=== PATIENT | female | born 1960 | race Caucasian/White ===

== ENCOUNTER 2020-08-31 08:53 | Outpatient (REF) | payer OTHER, SELFPAY ==
[2020-08-31 12:19] LABS: Thyroid Stimulating Hormone 1.45 uIU/mL (0.32-4.0)
[2020-08-31 12:34] LABS: Alanine Aminotransferase 29 U/L (0-31); Albumin Level 4.4 g/dL (3.5-5.0); Alkaline Phosphatase 85 U/L (39-117); Anion Gap 12 (12-20); Aspartate Amino Transferase 18 U/L (5-31); Bilirubin Total 1.9 mg/dL (0.0-1.0); Blood Urea Nitrogen 15 mg/dL (9-16); Calcium 9.1 mg/dL (8.4-10.2); Carbon Dioxide 31 mmol/L (22-29); Chloride 102 mmol/L (96-108); Estimated Glomerular Filt Rate > 60; Glucose Fasting 91 mg/dL (60-99); Potassium 4.8 mmol/l (3.3-5.1); Sodium 140 mmol/L (135-145); Total Protein 7.4 g/dL (6.5-8.0)
== END 2020-08-31 08:54 | disposition home or self-care (01) ==
LOC: HO.HMGCLDS 08:53
PROVIDERS: PCP Internal Medicine; Visit Provider Internal Medicine
DX: E03.9 Hypothyroidism, unspecified (principal); I10 Essential (primary) hypertension; R73.9 Hyperglycemia, unspecified
CPT/HCPCS: 80053; 84443

== ENCOUNTER 2021-10-26 07:59 | Outpatient (REF) | payer OTHER, SELFPAY ==
[2021-10-26 11:35] LABS: Hematocrit 44.7 % (37.0-47.0); Hemoglobin 14.4 g/dl (12.0-16.0); Mean Corpuscular HGB Conc 32.2 g/dl (31.0-35.0); Mean Corpuscular Hemoglobin 32.1 pg (27.0-33.0); Mean Corpuscular Volume 99.6 fL (80.0-98.0); Mean Platelet Volume 10.5 fL (9.4-12.3); Platelet Count 264 X10*3/uL (160-400); Red Blood Count 4.49 X10*6/uL (4.20-5.50); Red Cell Distribution Width 12.3 % (11.0-16.0); White Blood Count 4.9 X10*3/uL (4.8-10.8)
[2021-10-26 11:55] LABS: Alanine Aminotransferase 19 U/L (0-31); Albumin Level 4.1 g/dL (3.5-5.0); Alkaline Phosphatase 81 U/L (39-117); Anion Gap 12 (12-20); Aspartate Amino Transferase 15 U/L (5-31); Blood Urea Nitrogen 18 mg/dL (9-16); Calcium 9.2 mg/dL (8.4-10.2); Carbon Dioxide 29 mmol/L (22-29); Chloride 106 mmol/L (96-108); Cholesterol 202 mg/dL; Estimated Average Glucose 103 mg/dL; Estimated Glomerular Filt Rate > 60; Glucose Fasting 98 mg/dL (60-99); HDL Cholesterol 61 mg/dL; Hemoglobin A1c % 5.2 %; LDL Cholesterol Calculated 118 mg/dl; Potassium 5.2 mmol/L (3.3-5.1); Sodium 142 mmol/L (135-145); Total Protein 7.3 g/dL (6.5-8.0); Triglycerides 119 mg/dL
[2021-10-26 12:05] LABS: TSH reflex Free T4 6.35 uIU/mL (0.32-4.0); Vitamin D 25-OH Total 17.4 ng/mL (>30)
[2021-10-26 12:09] LABS: Creatinine Urine 105.03 mg/dL; Microalbum/Creatinine Ratio Ur 12.3 ug/mg cr
[2021-10-26 12:53] LABS: Free T4 (Free Thyroxine) 0.87 ng/dL (0.71-1.85)
== END 2021-10-26 08:00 | disposition home or self-care (01) ==
LOC: HO.HMGCLDS 07:59
PROVIDERS: Visit Provider Internal Medicine
DX: E03.9 Hypothyroidism, unspecified (principal); E66.9 Obesity, unspecified; E78.5 Hyperlipidemia, unspecified; R73.9 Hyperglycemia, unspecified
CPT/HCPCS: 36415; 80053; 80061; 82043; 82306; 83036; 84439; 84443; 85027

== ENCOUNTER 2022-01-24 10:58 | Outpatient (REF) | payer OTHER, SELFPAY ==
[2022-01-24 14:34] LABS: TSH reflex Free T4 3.55 uIU/mL (0.32-4.0)
== END 2022-01-24 10:59 | disposition home or self-care (01) ==
LOC: HO.HMGCLDS 10:58
PROVIDERS: PCP Internal Medicine; Visit Provider Internal Medicine
DX: E03.9 Hypothyroidism, unspecified (principal)
CPT/HCPCS: 36415; 84443

== ENCOUNTER 2022-11-17 08:43 | Outpatient (REF) | payer OTHER, SELFPAY ==
[2022-11-17 11:34] LABS: Hematocrit 43.6 % (37.0-47.0); Hemoglobin 14.2 g/dl (12.0-16.0); Mean Corpuscular HGB Conc 32.6 g/dl (31.0-35.0); Mean Corpuscular Hemoglobin 32.1 pg (27.0-33.0); Mean Corpuscular Volume 98.6 fL (80.0-98.0); Mean Platelet Volume 10.6 fL (9.4-12.3); Platelet Count 282 X10*3/uL (160-400); Red Blood Count 4.42 X10*6/uL (4.20-5.50); Red Cell Distribution Width 12.7 % (11.0-16.0); White Blood Count 6.3 X10*3/uL (4.8-10.8)
[2022-11-17 11:46] LABS: Estimated Average Glucose 111 mg/dL; Hemoglobin A1c % 5.5 %
[2022-11-17 11:49] LABS: Alanine Aminotransferase 28 U/L (0-31); Albumin Level 4.2 g/dL (3.5-5.0); Alkaline Phosphatase 80 U/L (39-117); Anion Gap 13 (12-20); Aspartate Amino Transferase 19 U/L (5-31); Bilirubin Total 1.8 mg/dL (0.0-1.0); Blood Urea Nitrogen 14 mg/dL (9-16); Carbon Dioxide 27 mmol/L (22-29); Chloride 107 mmol/L (96-108); Cholesterol 221 mg/dL; Estimated Glomerular Filt Rate > 60; Glucose Fasting 104 mg/dL (60-99); HDL Cholesterol 72 mg/dL; LDL Cholesterol Calculated 125 mg/dl; Potassium 5.2 mmol/L (3.3-5.1); Sodium 142 mmol/L (135-145); Total Protein 7.1 g/dL (6.5-8.0); Triglycerides 121 mg/dL
[2022-11-17 12:10] LABS: TSH reflex Free T4 5.04 uIU/mL (0.32-4.0)
[2022-11-17 12:54] LABS: Free T4 (Free Thyroxine) 0.94 ng/dL (0.71-1.85)
== END 2022-11-17 08:44 | disposition home or self-care (01) ==
LOC: HO.HMGCLDS 08:43
PROVIDERS: PCP Internal Medicine; Visit Provider Internal Medicine
DX: E78.5 Hyperlipidemia, unspecified (principal); R73.9 Hyperglycemia, unspecified; E03.9 Hypothyroidism, unspecified; I10 Essential (primary) hypertension
CPT/HCPCS: 36415; 80053; 80061; 83036; 84439; 84443; 85027

== ENCOUNTER 2023-01-30 08:29 | Outpatient (REF) | payer OTHER, SELFPAY ==
[2023-01-30 12:50] LABS: Estimated Average Glucose 108 mg/dL; Hemoglobin A1c % 5.4 %
[2023-01-30 12:58] LABS: Alanine Aminotransferase 21 U/L (0-31); Albumin Level 4.2 g/dL (3.5-5.0); Alkaline Phosphatase 73 U/L (39-117); Anion Gap 12 (12-20); Aspartate Amino Transferase 15 U/L (5-31); Bilirubin Total 1.9 mg/dL (0.0-1.0); Blood Urea Nitrogen 13 mg/dL (9-16); Carbon Dioxide 29 mmol/L (22-29); Chloride 104 mmol/L (96-108); Cholesterol 188 mg/dL; Estimated Glomerular Filt Rate > 60; Glucose Fasting 84 mg/dL (60-99); HDL Cholesterol 60 mg/dL; LDL Cholesterol Calculated 111 mg/dl; Potassium 4.2 mmol/L (3.3-5.1); Sodium 141 mmol/L (135-145); TSH reflex Free T4 4.17 uIU/mL (0.32-4.0); Total Protein 7.1 g/dL (6.5-8.0); Triglycerides 85 mg/dL
[2023-01-30 13:29] LABS: Free T4 (Free Thyroxine) 0.97 ng/dL (0.71-1.85)
== END 2023-01-30 08:30 | disposition home or self-care (01) ==
LOC: HO.HMGCLDS 08:29
PROVIDERS: PCP Internal Medicine; Visit Provider Internal Medicine
DX: E03.9 Hypothyroidism, unspecified (principal); E78.5 Hyperlipidemia, unspecified; F41.9 Anxiety disorder, unspecified; I10 Essential (primary) hypertension
CPT/HCPCS: 36415; 80053; 80061; 83036; 84439; 84443

== ENCOUNTER 2023-04-07 09:20 | Outpatient (REF) | payer OTHER, SELFPAY | END 2023-04-07 09:21 | disposition home or self-care (01) | LOC: HO.HMGCLDS 09:20 | PROVIDERS: PCP Internal Medicine; Visit Provider Internal Medicine | DX: E03.9 Hypothyroidism, unspecified (principal) | CPT/HCPCS: 36415; 84443 ==

== ENCOUNTER 2023-12-28 10:59 | Outpatient (AMB) | payer OTHER, SELFPAY ==
--- NOTE | 2023-12-28 11:05 | MHC.PC.OV ---
Vital Signs 12/28/23 11:06 Height 5 ft 7 in Weight 280 lb BMI 43.8 BP 130/76 Blood Pressure Location Rt brachial Position Sitting Pulse 66 Pulse Source Pulse Oximeter Pulse Oximetry (%) 97 Oxygen Delivery Method Room Air Intake Visit Reasons: PE (physical exam), annual Intake Note: Pt is here today for PE. Allergies No Known Allergies Allergy (Verified 12/28/23 11:07) Medication List - Last Reconciled 12/28/23 by Sujey Crawford MD amlodipine 2.5 mg PO DAILY amlodipine 5 mg PO DAILY cholecalciferol (vitamin D3) 50 mcg PO DAILY citalopram 40 mg (2 x 20 mg) PO DAILY exemestane 25 mg PO DAILY levothyroxine 88 mcg PO DAILY multivitamin 1 tab PO DAILY pravastatin 40 mg PO DAILY Tobacco use date assessed: 12/28/23 Fall risk assessment: No Falls in past year Last assessed Fall Risk: 12/28/23 Dental Screening Dental Screen Date: 12/28/23 Did you have a dental visit in the last 12 months?: No Did you have a dental problem in the last 6 months where you did not have access to dental care?: No Was dental information given to patient?: Patient declined HPI Encounter for annual physical exam HPI Details Patient presents for physical PFSH Medical History Anxiety Obese Hyperglycemia Normal colonoscopy Hypothyroidism Normal Pap smear Hyperlipidemia Anxiety and depression Hemorrhoids Breast CA HTN (hypertension) Surgical History H/O colonoscopy Family History Father HTN (hypertension) Mother No problems noted. Social History Housing: House Alcohol intake: current Alcohol intake frequency: a few times a month Patient Tobacco Use Status: Never used Tobacco e-Cigarette/Vaping Use: Never Used Current occupational status: employed Cognitive needs: No Hearing needs: No Vision needs: Yes Questionnaire PHQ-9 Over the last 2 weeks, how often have you been bothered by any of the following problems? 1. Little interest or pleasure in doing things: not at all 2. Feeling down, depressed, or hopeless: not at all 3. Trouble falling or staying asleep, or sleeping too much: not at all 4. Feeling tired or having little energy: not at all 5. Poor appetite or overeating: not at all 6. Feeling bad about yourself - or that you are a failure or have let yourself or your family down: not at all 7. Trouble concentrating on things, such as reading the newspaper or watching television: not at all 8. Moving or speaking so slowly that other people could have noticed. Or the opposite - being so fidgety or restless that you have been moving around a lot more than usual: not at all 9. Thoughts that you would be better off or of hurting yourself in some way: not at all Total score: 0 Depression Screening Interpretation: Negative Depression Screening Done: Yes Source: Developed by Drs. Jese Patterson, Jahaira Villarreal, Yared Bhakta and colleagues, with an educational galina from [employer]. Thrive Questionnaire Date Thrive assessed: 12/28/23 I am a: Patient What is your living situation today?: I have a steady place to live Within the past 12 months, did the food you bought not last and you didn't have the money to get more?: Never true Within the past 12 months, did you worry whether your food would run out before you got money to buy more?: Never true Do you have trouble paying for medicines?: No Do you have trouble getting transportation to medical appointments?: No Do you have trouble paying your heating and electricity bill?: No Do you have trouble taking care of your child, family member or friend?: No Do you have trouble with day-to-day activities such as bathing, preparing meals, shopping, managing finances, etc.?: No Are you currently unemployed and looking for a job?: No Are you interested in more education?: No Please select the resources that you would like help with: None THRIVE Score: 0 AUDIT C Alcohol Use Questionnaire (AUDIT-C) 1. How often do you have a drink containing alcohol?: 2-3 times a week 2. How many drinks containing alcohol do you have on a typical day when you are drinking?: 1 or 2 3. How often do you have six or more drinks on one occasion?: Never Total Score: 3 JUAQUNI-7 AMB Questionnaire JUAQUIN-7 Date JUAQUIN - 7 assessed: 12/28/23 Feeling nervous, anxious, or on edge: 0 = Not at all Not being able to stop or control worryin = Not at all Worrying too much about different things: 0 = Not at all Trouble relaxin = Not at all Being so restless that it is hard to sit still: 0 = Not at all Becoming easily annoyed or irritable: 0 = Not at all Feeling afraid as if something awful might happen: 0 = Not at all Total JUAQUIN-7 score (0-4 normal; 5-9 mild; 10-14 moderate; 15-21 severe): 0 Source: Developed by Drs. Jese Patterson, Jahaira Villarreal, Yared Bhakta and colleagues, with an educational galina from [employer]. Review of Systems Const All systems reviewed & are unremarkable except as noted in HPI and below Reports no additional complaints Eyes Reports no additional complaints ENT Reports no additional complaints Card Reports no additional complaints Resp Reports no additional complaints GI Reports no additional complaints Reports no additional complaints Physical exam (Primary Care) Vital Signs: Last Vital Signs Pulse 66 12/28/23 11:06 BP 130/76 12/28/23 11:06 Pulse Ox 97 12/28/23 11:06 Oxygen Delivery Method Room Air 12/28/23 11:06 BMI result Body Mass Index 43.8 Tobacco/Smoking Status: Tobacco use Status Tobacco use date assessed 12/28/23 12/28/23 11:11 Patient Tobacco Use Status Never used Tobacco 12/28/23 11:11 e-Cigarette/Vaping Use Never Used 12/28/23 11:11 PHQ-9: PHQ-9 Score PHQ-9: Total score 0 12/28/23 12:14 Depression Screening Interpretation: Negative Thrive Assessment: Date of Thrive Assessment Date Thrive assessed 12/28/23 12/28/23 11:12 Const General: no acute distress Orientation/consciousness: oriented to person HENMT Head: Yes normal to inspection Ears: hearing grossly normal bilaterally General nose exam: Normal external nose present Face and sinus: Yes normal facial exam Mouth: Normal oral and palatal mucosa present Throat: Yes posterior oropharynx normal Eyes General: appearance normal, both eyes and all related structures Neck Neck: Yes no lymphadenopathy and Yes supple Resp Effort & Inspection: normal respiratory effort Auscultation: clear to auscultation bilaterally Cardio Rhythm: regular rhythm Heart sounds: S1 normal heart sound present and S2 normal heart sound present GI Inspection: Yes normal to inspection Palpation (GI): Soft to palpation Percussion: Yes normal to percussion Auscultation: normal bowel sounds Neuro General: oriented to person Assessment and Plan Assessment & Plan (1) Hyperlipidemia: Comment: Continue pravastatin Code(s): E78.5 - Hyperlipidemia, unspecified Plan: cont statin (2) Breast CA: Comment: 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, complicated unsuccessful reconstruction 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 [facility] Code(s): C50.919 - Malignant neoplasm of unspecified site of unspecified female breast Plan: f/u with [facility] oncology (3) Hyperglycemia: Comment: ADA diet, increase exercise, weight loss Code(s): R73.9 - Hyperglycemia, unspecified Plan: Patient will return for fasting blood work check A1c ADA diet increase exercise weight loss discussed with the patient (4) HTN (hypertension): Comment: dx 2017 Code(s): I10 - Essential (primary) hypertension Plan: Continue current medications (5) Hypothyroidism: Code(s): E03.9 - Hypothyroidism, unspecified Plan: Continue levothyroxine (6) Encounter for annual physical exam: Code(s): Z00.00 - Encounter for general adult medical examination without abnormal findings Plan: Patient schedule an appointment with physician gynecologist and is up-to-date with mammogram and colonoscopy (7) Morbid obesity with BMI of 45.0-49.9, adult: Code(s): E66.01 - Morbid (severe) obesity due to excess calories; Z68.42 - Body mass index [BMI] 45.0-49.9, adult Plan: Weight loss increase physical activity discussed with the patient (8) Anxiety: Code(s): F41.9 - Anxiety disorder, unspecified Orders: Orders Comprehensive Universal. Panel Fast Today C50.919 - Malignant neoplasm of unspecified site of unspecified female breast, E03.9 - Hypothyroidism, unspecified, E78.5 - Hyperlipidemia, unspecified, I10 - Essential (primary) hypertension, R73.9 - Hyperglycemia, unspecified Lipid Panel Today C50.919 - Malignant neoplasm of unspecified site of unspecified female breast, E03.9 - Hypothyroidism, unspecified, E78.5 - Hyperlipidemia, unspecified, I10 - Essential (primary) hypertension, R73.9 - Hyperglycemia, unspecified TSH reflex Free T4 Today C50.919 - Malignant neoplasm of unspecified site of unspecified female breast, E03.9 - Hypothyroidism, unspecified, E78.5 - Hyperlipidemia, unspecified, I10 - Essential (primary) hypertension, R73.9 - Hyperglycemia, unspecified Vitamin D 25-OH Total Today C50.919 - Malignant neoplasm of unspecified site of unspecified female breast, E03.9 - Hypothyroidism, unspecified, E78.5 - Hyperlipidemia, unspecified, I10 - Essential (primary) hypertension, R73.9 - Hyperglycemia, unspecified Hemoglobin A1c Today R73.9 - Hyperglycemia, unspecified Comprehensive Universal. Panel Fast 6 Months E03.9 - Hypothyroidism, unspecified, E78.5 - Hyperlipidemia, unspecified, I10 - Essential (primary) hypertension, R73.9 - Hyperglycemia, unspecified TSH reflex Free T4 6 Months E03.9 - Hypothyroidism, unspecified, E78.5 - Hyperlipidemia, unspecified, I10 - Essential (primary) hypertension, R73.9 - Hyperglycemia, unspecified Complete Blood Count Auto Diff Today C50.919 - Malignant neoplasm of unspecified site of unspecified female breast, E03.9 - Hypothyroidism, unspecified, E78.5 - Hyperlipidemia, unspecified, I10 - Essential (primary) hypertension, R73.9 - Hyperglycemia, unspecified Lipid Panel 6 Months E03.9 - Hypothyroidism, unspecified, E78.5 - Hyperlipidemia, unspecified, I10 - Essential (primary) hypertension, R73.9 - Hyperglycemia, unspecified Hemoglobin A1c 6 Months E03.9 - Hypothyroidism, unspecified, E78.5 - Hyperlipidemia, unspecified, I10 - Essential (primary) hypertension, R73.9 - Hyperglycemia, unspecified Medications: Refilled citalopram 40 mg (2 x 20 mg) PO DAILY 180 tabs 3RF levothyroxine 88 mcg PO DAILY 90 tabs 3RF amlodipine 2.5 mg PO DAILY 90 tabs 3RF take with 5 mg amlodipine 5 mg PO DAILY 90 tabs 3RF take with 2.5 mg pravastatin 40 mg PO DAILY 90 tabs 3RF Coding Level of Care Code Est Pt Prev Care 40-64y([id number]) Diagnoses Hyperlipidemia E78.5 Breast CA C50.919 Hyperglycemia R73.9 HTN (hypertension) I10 Hypothyroidism E03.9 Encounter for annual physical exam Z00.00 Morbid obesity with BMI of 45.0-49.9, adult E66.01; Z68.42 Anxiety F41.9
[2023-12-28 11:06] VITALS: BP 130/76; PULSE 66; O2SAT 97; BMI 43.8
== END 2023-12-28 12:37 | disposition home or self-care (01) ==
PROVIDERS: PCP Internal Medicine; Visit Provider Internal Medicine
DX: Z00.00 Encounter for general adult medical examination without abnormal findings (principal); C50.919 Malignant neoplasm of unspecified site of unspecified female breast; E66.01 Morbid (severe) obesity due to excess calories; Z68.42 Body mass index [BMI] 45.0-49.9, adult; E78.5 Hyperlipidemia, unspecified; R73.9 Hyperglycemia, unspecified; I10 Essential (primary) hypertension; E03.9 Hypothyroidism, unspecified; F41.9 Anxiety disorder, unspecified
CPT/HCPCS: 99396

== ENCOUNTER 2023-12-28 12:02 | Outpatient (REF) | payer OTHER, SELFPAY ==
[2023-12-28 13:16] LABS: MANUAL DIFF FLAG NO
[2023-12-28 13:34] LABS: Basophils Percent Auto 0.4 % (0-2); Eosinophils Absolute Auto 0.1 X10*3/uL (0.0-0.4); Eosinophils Percent Auto 0.7 % (0-4); Hematocrit 44.8 % (37.0-47.0); Hemoglobin 15.1 g/dl (12.0-16.0); Imm Gran Abs Auto 0.01 X10*3/uL (0.00-0.03); Imm Gran Pct Auto 0.1 % (0.0-0.4); Lymphocytes Absolute Auto 1.9 X10*3/uL (1.2-4.9); Lymphocytes Percent Auto 28.3 % (20-40); Mean Corpuscular HGB Conc 33.7 g/dl (31.0-35.0); Mean Corpuscular Hemoglobin 32.3 pg (27.0-33.0); Mean Corpuscular Volume 95.7 fL (80.0-98.0); Mean Platelet Volume 10.4 fL (9.4-12.3); Monocytes Absolute Auto 0.4 X10*3/uL (0.1-1.2); Monocytes Percent Auto 6.5 % (2-11); Neutrophils Absolute Auto 4.3 x10*3/uL (2.0-8.3); Platelet Count 306 X10*3/uL (160-400); Red Blood Count 4.68 X10*6/uL (4.20-5.50); White Blood Count 6.8 X10*3/uL (4.8-10.8)
[2023-12-28 13:59] LABS: Estimated Average Glucose 108 mg/dL; Hemoglobin A1c % 5.4 % (<6.0)
[2023-12-28 14:42] LABS: Alanine Aminotransferase 22 U/L (0-31); Albumin Level 4.4 g/dL (3.5-5.0); Alkaline Phosphatase 81 U/L (39-117); Anion Gap 17 (12-20); Aspartate Amino Transferase 16 U/L (5-31); Bilirubin Total 1.1 mg/dL (0.0-1.0); Blood Urea Nitrogen 14 mg/dL (9-16); Calcium 9.2 mg/dL (8.4-10.2); Carbon Dioxide 30 mmol/L (22-29); Chloride 102 mmol/L (96-108); Cholesterol 225 mg/dL (<200); Estimated Glomerular Filt Rate > 60; Glucose Fasting 93 mg/dL (60-99); HDL Cholesterol 71 mg/dL (>40); LDL Cholesterol Calculated 136 mg/dL (<100); Potassium 4.5 mmol/L (3.3-5.1); Sodium 144 mmol/L (135-145); Total Protein 7.6 g/dL (6.5-8.0); Triglycerides 92 mg/dL (<150)
[2023-12-28 14:56] LABS: Vitamin D 25-OH Total 16.1 ng/mL (>30)
== END 2023-12-28 12:03 | disposition home or self-care (01) ==
LOC: HO.HMGCLDS 12:02
PROVIDERS: PCP Internal Medicine; Visit Provider Internal Medicine
DX: C50.919 Malignant neoplasm of unspecified site of unspecified female breast (principal); E78.5 Hyperlipidemia, unspecified; R73.9 Hyperglycemia, unspecified; I10 Essential (primary) hypertension; E03.9 Hypothyroidism, unspecified
CPT/HCPCS: 36415; 80053; 80061; 82306; 83036; 84443; 85025

== ENCOUNTER 2024-07-08 12:07 | Outpatient (REF) | payer OTHER, SELFPAY ==
[2024-07-08 13:51] LABS: Estimated Average Glucose 108 mg/dL; Hemoglobin A1C 130.8758 umol/L; Hemoglobin A1c % 5.4 % (<6.0); Total Hemoglobin (HGBA1C) 3734.8569 umol/L
[2024-07-08 14:02] LABS: Alanine Aminotransferase 20 U/L (0-31); Albumin Level 4.4 g/dL (3.5-5.0); Alkaline Phosphatase 68 U/L (39-117); Anion Gap 11 (12-20); Aspartate Amino Transferase 16 U/L (5-31); Bilirubin Total 1.6 mg/dL (0.0-1.0); Blood Urea Nitrogen 14 mg/dL (9-16); Calcium 9.2 mg/dL (8.4-10.2); Carbon Dioxide 27 mmol/L (22-29); Chloride 105 mmol/L (96-108); Cholesterol 230 mg/dL (<200); Estimated Glomerular Filt Rate > 60; Glucose Fasting 89 mg/dL (60-99); HDL Cholesterol 69 mg/dL (>40); LDL Cholesterol Calculated 137 mg/dL (<100); Potassium 3.8 mmol/L (3.3-5.1); Sodium 139 mmol/L (135-145); Total Protein 7.7 g/dL (6.5-8.0); Triglycerides 123 mg/dL (<150)
[2024-07-08 14:17] LABS: TSH reflex Free T4 4.37 uIU/mL (0.32-4.0)
[2024-07-08 15:00] LABS: Free T4 (Free Thyroxine) 0.87 ng/dL (0.71-1.85)
== END 2024-07-08 12:08 | disposition home or self-care (01) ==
LOC: HO.HMGCLDS 12:07
PROVIDERS: PCP Internal Medicine; Visit Provider Internal Medicine
DX: E78.5 Hyperlipidemia, unspecified (principal); R73.9 Hyperglycemia, unspecified; E03.9 Hypothyroidism, unspecified; I10 Essential (primary) hypertension
CPT/HCPCS: 36415; 80053; 80061; 83036; 84439; 84443

== ENCOUNTER 2024-07-15 11:51 | Outpatient (AMB) | payer OTHER, SELFPAY ==
--- NOTE | 2024-07-15 12:06 | MHC.PC.OV ---
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 Accompanied by: Self / Same As Patient Allergies No Known Allergies Allergy (Verified 07/15/24 12:07) Medication List - Last Reconciled 07/15/24 by Sujey Crawford MD amlodipine 2.5 mg PO DAILY amlodipine 5 mg PO DAILY cholecalciferol (vitamin D3) 50 mcg PO DAILY citalopram 40 mg (2 x 20 mg) PO DAILY exemestane 25 mg PO DAILY levothyroxine 88 mcg PO DAILY multivitamin 1 tab PO DAILY pravastatin 40 mg PO DAILY Tobacco use date assessed: 12/28/23 Fall risk assessment: No Falls in past year Last assessed Fall Risk: 07/15/24 Dental Screening Dental Screen Date: 12/28/23 HPI HPI Comments History of Present Illness Details Patient presents for the follow-up on hypertension hyperlipidemia hypothyroidism chronic anxiety. She admits forgetting to take her medications occasionally. Patient complains of chronic left hip pain worse when walking longer distance but was told that she needs to lose weight in order to have a hip replacement surgery. [facility] Medical History Anxiety Obese Hyperglycemia Normal colonoscopy Hypothyroidism Normal Pap smear Hyperlipidemia Anxiety and depression Hemorrhoids Breast CA HTN (hypertension) Surgical History (Updated 07/15/24 @ 12:48 by Sujey Crawford MD) H/O colonoscopy Family History Father HTN (hypertension) Mother No problems noted. Social History Housing: House Alcohol intake: current Alcohol intake frequency: a few times a month Patient Tobacco Use Status: Never used Tobacco e-Cigarette/Vaping Use: Never Used Current occupational status: employed Cognitive needs: No Hearing needs: No Vision needs: Yes Questionnaire PHQ-9 Over the last 2 weeks, how often have you been bothered by any of the following problems? 1. Little interest or pleasure in doing things: not at all 2. Feeling down, depressed, or hopeless: not at all 3. Trouble falling or staying asleep, or sleeping too much: not at all 4. Feeling tired or having little energy: several days 5. Poor appetite or overeating: not at all 6. Feeling bad about yourself - or that you are a failure or have let yourself or your family down: not at all 7. Trouble concentrating on things, such as reading the newspaper or watching television: not at all 8. Moving or speaking so slowly that other people could have noticed. Or the opposite - being so fidgety or restless that you have been moving around a lot more than usual: not at all 9. Thoughts that you would be better off or of hurting yourself in some way: not at all Total score: 1 Depression Screening Interpretation: Negative Depression Screening Done: Yes 56967 - PHQ-9 Billing: Yes Source: Developed by Drs. Jese Patterson, Jahaira Villarreal, Yared Bhakta and colleagues, with an educational galina from [email or web address]. Thrive Questionnaire Date Thrive assessed: 07/15/24 I am a: Patient What is your living situation today?: I have a steady place to live Within the past 12 months, did the food you bought not last and you didn't have the money to get more?: Sometimes True Within the past 12 months, did you worry whether your food would run out before you got money to buy more?: Sometimes True Do you have trouble paying for medicines?: No Do you have trouble getting transportation to medical appointments?: I choose not to answer this question Do you have trouble paying your heating and electricity bill?: I choose not to answer this question Do you have trouble taking care of your child, family member or friend?: I choose not to answer this question Do you have trouble with day-to-day activities such as bathing, preparing meals, shopping, managing finances, etc.?: I choose not to answer this question Are you interested in more education?: I choose not to answer this question Please select the resources that you would like help with: Daily support Currently or been in a relationship where the following occur: I choose not to answer THRIVE Score: 2 AUDIT C Alcohol Use Questionnaire (AUDIT-C) 1. How often do you have a drink containing alcohol?: 2-4 times a month 2. How many drinks containing alcohol do you have on a typical day when you are drinking?: 3 or 4 3. How often do you have six or more drinks on one occasion?: Never Total Score: 3 Score Reviewed/Action Taken: Yes JUAQUIN-7 AMB Questionnaire JUAQUIN-7 Date JUAQUIN - 7 assessed: 07/15/24 Feeling nervous, anxious, or on edge: 1 = Several days Not being able to stop or control worryin = Several days Worrying too much about different things: 1 = Several days Trouble relaxin = Several days Being so restless that it is hard to sit still: 1 = Several days Becoming easily annoyed or irritable: 0 = Not at all Feeling afraid as if something awful might happen: 0 = Not at all Total JUAQUIN-7 score (0-4 normal; 5-9 mild; 10-14 moderate; 15-21 severe): 5 Source: Developed by Drs. Jese Patterson, Jahaira Villarreal, Yared Bhakta and colleagues, with an educational galina from [email or web address]. JUAQUIN-7 Assessment Billing JUAQUIN-7 Assessment Tool: JUAQUIN-7 Assessment 81167 Review of Systems Const All systems reviewed & are unremarkable except as noted in HPI and below ENT Reports no additional complaints Card Reports no additional complaints Resp Reports no additional complaints GI Reports no additional complaints Reports no additional complaints Physical exam (Primary Care) Vital Signs: Last Vital Signs Pulse 70 07/15/24 12:07 BP 132/74 07/15/24 12:07 Pulse Ox 97 07/15/24 12:07 Oxygen Delivery Method Room Air 07/15/24 12:07 BMI result Body Mass Index 44.3 Tobacco/Smoking Status: Tobacco use Status Tobacco use date assessed 12/28/23 07/15/24 12:08 Patient Tobacco Use Status Never used Tobacco 07/15/24 12:08 e-Cigarette/Vaping Use Never Used 07/15/24 12:08 PHQ-9: PHQ-9 Score PHQ-9: Total score 0 07/15/24 12:08 Depression Screening Interpretation: Negative Thrive Assessment: Date of Thrive Assessment Date Thrive assessed 07/15/24 07/15/24 12:08 Currently or been in a relationship where the following occur: I choose not to answer Const General: no acute distress Neck Neck: Yes supple Resp Effort & Inspection: normal respiratory effort Auscultation: clear to auscultation bilaterally Cardio Rhythm: regular rhythm Heart sounds: S1 normal heart sound present and S2 normal heart sound present GI Inspection: Yes normal to inspection Palpation (GI): Soft to palpation Percussion: Yes normal to percussion Auscultation: normal bowel sounds Coding Level of Care Code Est Pt Level 4 (92813) Diagnoses H/O colonoscopy Z98.890 Hyperglycemia R73.9 Hypothyroidism E03.9 HTN (hypertension) I10 Hyperlipidemia E78.5 Morbid obesity with BMI of 45.0-49.9, adult E66.01; Z68.42 Additional Codes JUAQUIN-7 Assessment Billing - JUAQUIN-7 Assessment Tool: JUAQUIN-7 Assessment 36600 ([id number]) Assessment & Plan Assessment & Plan (1) H/O colonoscopy: Comment: 2017, normal Dr. Flores , recheck 10 yrs Code(s): Z98.890 - Other specified postprocedural states Category: Surgical Plan: Follow-up with GI (2) Hyperglycemia: Comment: ADA diet, increase exercise, weight loss Code(s): R73.9 - Hyperglycemia, unspecified Category: Medical Plan: A1c is 5.3, continue ADA diet increase exercise weight loss (3) Hypothyroidism: Code(s): E03.9 - Hypothyroidism, unspecified Category: Medical Plan: Medication compliance discussed with the patient continue levothyroxine (4) HTN (hypertension): Comment: dx 2017 Code(s): I10 - Essential (primary) hypertension Category: Medical Plan: Continue current medications (5) Hyperlipidemia: Comment: Continue pravastatin Code(s): E78.5 - Hyperlipidemia, unspecified Category: Medical Plan: Continue statin (6) Morbid obesity with BMI of 45.0-49.9, adult: Comment: pt declined GLP 1 agonist 07/2024 Code(s): E66.01 - Morbid (severe) obesity due to excess calories; Z68.42 - Body mass index [BMI] 45.0-49.9, adult Category: Medical Plan: Increase physical activity decrease caloric intake weight loss discussed with the patient. She declined GLP 1 agonist Orders: Orders Comprehensive [place]. Panel Fast 6 Months E03.9 - Hypothyroidism, unspecified, E66.01 - Morbid (severe) obesity due to excess calories, E78.5 - Hyperlipidemia, unspecified, I10 - Essential (primary) hypertension, Z68.42 - Body mass index [BMI] 45.0-49.9, adult Lipid Panel 6 Months E03.9 - Hypothyroidism, unspecified, E66.01 - Morbid (severe) obesity due to excess calories, E78.5 - Hyperlipidemia, unspecified, I10 - Essential (primary) hypertension, Z68.42 - Body mass index [BMI] 45.0-49.9, adult Complete Blood Count Auto Diff 6 Months E03.9 - Hypothyroidism, unspecified, E66.01 - Morbid (severe) obesity due to excess calories, E78.5 - Hyperlipidemia, unspecified, I10 - Essential (primary) hypertension, Z68.42 - Body mass index [BMI] 45.0-49.9, adult Hemoglobin A1c 6 Months E03.9 - Hypothyroidism, unspecified, E66.01 - Morbid (severe) obesity due to excess calories, E78.5 - Hyperlipidemia, unspecified, I10 - Essential (primary) hypertension, Z68.42 - Body mass index [BMI] 45.0-49.9, adult TSH reflex Free T4 6 Months E03.9 - Hypothyroidism, unspecified, E66.01 - Morbid (severe) obesity due to excess calories, E78.5 - Hyperlipidemia, unspecified, I10 - Essential (primary) hypertension, Z68.42 - Body mass index [BMI] 45.0-49.9, adult Vitamin D 25-OH Total 6 Months E03.9 - Hypothyroidism, unspecified, E66.01 - Morbid (severe) obesity due to excess calories, E78.5 - Hyperlipidemia, unspecified, I10 - Essential (primary) hypertension, Z68.42 - Body mass index [BMI] 45.0-49.9, adult Medications: New cholecalciferol (vitamin D3) 50 mcg PO DAILY 90 caps 3RF Refilled pravastatin 40 mg PO DAILY 90 tabs 3RF amlodipine 5 mg PO DAILY 90 tabs 3RF take with 2.5 mg amlodipine 2.5 mg PO DAILY 90 tabs 3RF take with 5 mg citalopram 40 mg (2 x 20 mg) PO DAILY 180 tabs 3RF levothyroxine 88 mcg PO DAILY 90 tabs 3RF
[2024-07-15 12:07] VITALS: BP 132/74; PULSE 70; O2SAT 97; BMI 44.3
== END 2024-07-15 12:58 | disposition home or self-care (01) ==
PROVIDERS: PCP Internal Medicine; Visit Provider Internal Medicine
DX: R73.9 Hyperglycemia, unspecified (principal); Z98.890 Other specified postprocedural states; E66.813 Obesity, class 3; Z68.42 Body mass index [BMI] 45.0-49.9, adult; E03.9 Hypothyroidism, unspecified; I10 Essential (primary) hypertension; E78.5 Hyperlipidemia, unspecified

== ENCOUNTER → 2024-07-15 11:51 | Outpatient (BNVA) | payer OTHER, SELFPAY | PROVIDERS: PCP Internal Medicine; Visit Provider Internal Medicine | DX: E66.01 Morbid (severe) obesity due to excess calories (principal); Z68.42 Body mass index [BMI] 45.0-49.9, adult; E78.5 Hyperlipidemia, unspecified; I10 Essential (primary) hypertension; E03.9 Hypothyroidism, unspecified; R73.9 Hyperglycemia, unspecified; Z98.890 Other specified postprocedural states | CPT/HCPCS: 96127; 99212 ==

== ENCOUNTER 2025-01-20 10:24 | Outpatient (REF) | payer OTHER, SELFPAY ==
[2025-01-20 13:10] LABS: MANUAL DIFF FLAG NO
[2025-01-20 13:15] LABS: Basophils Percent Auto 0.7 % (0-2); Eosinophils Absolute Auto 0.1 X10*3/uL (0.0-0.4); Eosinophils Percent Auto 1.5 % (0-4); Hematocrit 43.9 % (37.0-47.0); Hemoglobin 14.6 g/dl (12.0-16.0); Imm Gran Abs Auto 0.01 X10*3/uL (0.00-0.03); Imm Gran Pct Auto 0.2 % (0.0-0.4); Lymphocytes Absolute Auto 1.6 X10*3/uL (1.2-4.9); Lymphocytes Percent Auto 29.8 % (20-40); Mean Corpuscular HGB Conc 33.3 g/dl (31.0-35.0); Mean Corpuscular Hemoglobin 32.4 pg (27.0-33.0); Mean Corpuscular Volume 97.3 fL (80.0-98.0); Mean Platelet Volume 10.4 fL (9.4-12.3); Monocytes Absolute Auto 0.3 X10*3/uL (0.1-1.2); Monocytes Percent Auto 6.2 % (2-11); Neutrophils Absolute Auto 3.4 x10*3/uL (2.0-8.3); Neutrophils Percent Auto 61.6 % (45-73); Platelet Count 292 X10*3/uL (160-400); Red Blood Count 4.51 X10*6/uL (4.20-5.50); Red Cell Distribution Width 12.8 % (11.0-16.0); White Blood Count 5.5 X10*3/uL (4.8-10.8)
[2025-01-20 13:24] LABS: Estimated Average Glucose 108 mg/dL; Hemoglobin A1C 137.0254 umol/L; Hemoglobin A1c % 5.4 % (<6.0); Total Hemoglobin (HGBA1C) 3863.7626 umol/L
[2025-01-20 13:35] LABS: Alanine Aminotransferase 21 U/L (0-31); Albumin Level 4.1 g/dL (3.5-5.0); Alkaline Phosphatase 63 U/L (39-117); Anion Gap 10 (12-20); Aspartate Amino Transferase 19 U/L (5-31); Bilirubin Total 1.5 mg/dL (0.0-1.0); Blood Urea Nitrogen 13 mg/dL (9-16); Calcium 8.9 mg/dL (8.4-10.2); Carbon Dioxide 27 mmol/L (22-29); Chloride 107 mmol/L (96-108); Cholesterol 218 mg/dL (<200); Estimated Glomerular Filt Rate > 60; Glucose Fasting 86 mg/dL (60-99); HDL Cholesterol 63 mg/dL (>40); LDL Cholesterol Calculated 134 mg/dL (<100); Potassium 4.2 mmol/L (3.3-5.1); Sodium 140 mmol/L (135-145); Total Protein 7.2 g/dL (6.5-8.0); Triglycerides 105 mg/dL (<150)
[2025-01-20 13:53] LABS: TSH reflex Free T4 4.26 uIU/mL (0.32-4.0); Vitamin D 25-OH Total 33.6 ng/mL (>30)
[2025-01-20 14:30] LABS: Free T4 (Free Thyroxine) 0.98 ng/dL (0.71-1.85)
== END 2025-01-20 10:25 | disposition home or self-care (01) ==
LOC: HO.HMGCLDS 10:24
PROVIDERS: PCP Internal Medicine; Visit Provider Internal Medicine
DX: E66.01 Morbid (severe) obesity due to excess calories (principal); Z68.42 Body mass index [BMI] 45.0-49.9, adult; E78.5 Hyperlipidemia, unspecified; I10 Essential (primary) hypertension; E03.9 Hypothyroidism, unspecified
CPT/HCPCS: 36415; 80053; 80061; 82306; 83036; 84439; 84443; 85025

== ENCOUNTER 2025-01-27 13:34 | Outpatient (AMB) | payer OTHER, SELFPAY ==
--- NOTE | 2025-01-27 13:47 | A.OFFPC_ITS ---
Vital Signs 01/27/25 13:48 Height 5 ft 7 in Weight 278 lb BMI 43.5 BP 126/74 Blood Pressure Location Rt brachial Position Sitting Pulse 76 Pulse Source Pulse Oximeter Temp 98.0 F Temp Source Oral Pulse Oximetry (%) 98 Oxygen Delivery Method Room Air Intake Visit Reasons: FOLLOW UP Intake Note: Pt is here today for a follow up visit. Allergies No Known Allergies Allergy (Verified 01/27/25 13:50) Medication List - Last Reconciled 01/27/25 by Sujey Crawford MD amlodipine 5 mg PO DAILY amlodipine 2.5 mg PO DAILY cholecalciferol (vitamin D3) 50 mcg PO DAILY citalopram 40 mg (2 x 20 mg) PO DAILY exemestane 25 mg PO DAILY levothyroxine 100 mcg PO DAILY multivitamin 1 tab PO DAILY rosuvastatin (Crestor) 20 mg PO DAILY Tobacco use date assessed: 01/27/25 Fall risk assessment: No Falls in past year Last assessed Fall Risk: 01/27/25 Dental Screening Dental Screen Date: 01/27/25 Did you have a dental visit in the last 12 months?: Yes Did you have a dental problem in the last 6 months where you did not have access to dental care?: No Was dental information given to patient?: Patient has dentist HPI FOLLOW UP HPI Details Pt presents for HTN, hypothyroid, hyperlipid, stable on meds [facility] Medical History Anxiety Obese Hyperglycemia Normal colonoscopy Hypothyroidism Normal Pap smear Hyperlipidemia Anxiety and depression Hemorrhoids Breast CA HTN (hypertension) Surgical History H/O colonoscopy Family History Father HTN (hypertension) Mother No problems noted. Social History Housing: House Alcohol intake: current Alcohol intake frequency: a few times a month Patient Tobacco Use Status: Never used Tobacco e-Cigarette/Vaping Use: Never Used service: No Current occupational status: employed Cognitive needs: No Hearing needs: No Vision needs: Yes Questionnaire PHQ-9 Over the last 2 weeks, how often have you been bothered by any of the following problems? 1. Little interest or pleasure in doing things: several days 2. Feeling down, depressed, or hopeless: several days 3. Trouble falling or staying asleep, or sleeping too much: several days 4. Feeling tired or having little energy: several days 5. Poor appetite or overeating: not at all 6. Feeling bad about yourself - or that you are a failure or have let yourself or your family down: not at all 7. Trouble concentrating on things, such as reading the newspaper or watching television: not at all 8. Moving or speaking so slowly that other people could have noticed. Or the opposite - being so fidgety or restless that you have been moving around a lot more than usual: not at all 9. Thoughts that you would be better off or of hurting yourself in some way : not at all Total score: 4 Depression Screening Interpretation: Negative Depression Screening Done: Yes 09800 - PHQ-9 Billing: Yes Source: Developed by Drs. Jese Patterson, Jahaira Villarreal, Yared Bhakta and colleagues, with an educational galina from [employer]. Thrive Questionnaire Date Thrive assessed: 01/27/25 I am a: Patient What is your living situation today?: I have a steady place to live Within the past 12 months, did the food you bought not last and you didn't have the money to get more?: Sometimes True Within the past 12 months, did you worry whether your food would run out before you got money to buy more?: Sometimes True Do you have trouble paying for medicines?: I choose not to answer this question Do you have trouble getting transportation to medical appointments?: I choose not to answer this question Do you have trouble paying your heating and electricity bill?: Yes Do you have trouble taking care of your child, family member or friend?: I choose not to answer this question Do you have trouble with day-to-day activities such as bathing, preparing meals, shopping, managing finances, etc.?: No Are you currently unemployed and looking for a job?: No Are you interested in more education?: No Please select the resources that you would like help with: None Currently or been in a relationship where the following occur: I choose not to answer THRIVE Score: 3 AUDIT C Alcohol Use Questionnaire (AUDIT-C) 1. How often do you have a drink containing alcohol?: Monthly or less 2. How many drinks containing alcohol do you have on a typical day when you are drinking?: 3 or 4 3. How often do you have six or more drinks on one occasion?: Less than monthly Total Score: 3 JUAQUIN-7 AMB Questionnaire JUAQUIN-7 Date JUAQUIN - 7 assessed: 01/27/25 Feeling nervous, anxious, or on edge: 1 = Several days Not being able to stop or control worryin = Several days Worrying too much about different things: 1 = Several days Trouble relaxin = Several days Being so restless that it is hard to sit still: 1 = Several days Becoming easily annoyed or irritable: 0 = Not at all Feeling afraid as if something awful might happen: 1 = Several days Total JUAQUIN-7 score (0-4 normal; 5-9 mild; 10-14 moderate; 15-21 severe): 6 Source: Developed by Drs. Jese Patterson, Jahaira Villarreal, Yared Bhakta and colleagues, with an educational galina from [employer]. JUAQUIN-7 Assessment Billing JUAQUIN-7 Assessment Tool: JUAQUIN-7 Assessment 98049 Review of Systems Const All systems reviewed & are unremarkable except as noted in HPI and below ENT Reports no additional complaints Card Reports no additional complaints Resp Reports no additional complaints GI Reports no additional complaints Reports no additional complaints Physical exam (Primary Care) Vital Signs: Last Vital Signs Temp 98.0 F 01/27/25 13:48 Pulse 76 01/27/25 13:48 BP 126/74 01/27/25 13:48 Pulse Ox 98 01/27/25 13:48 Oxygen Delivery Method Room Air 01/27/25 13:48 BMI result Body Mass Index 43.5 Tobacco/Smoking Status: Tobacco use Status Tobacco use date assessed 01/27/25 01/27/25 13:53 Patient Tobacco Use Status Never used Tobacco 01/27/25 13:53 e-Cigarette/Vaping Use Never Used 01/27/25 13:53 PHQ-9: PHQ-9 Score PHQ-9: Total score 4 01/27/25 13:53 Depression Screening Interpretation: Negative Thrive Assessment: Date of Thrive Assessment Date Thrive assessed 01/27/25 01/27/25 13:53 Currently or been in a relationship where the following occur: I choose not to answer Const General: no acute distress HENMT Head: Yes normal to inspection Ears: hearing grossly normal bilaterally Eyes General: appearance normal, both eyes and all related structures Neck Neck: Yes supple Resp Effort & Inspection: normal respiratory effort Auscultation: clear to auscultation bilaterally Cardio Rhythm: regular rhythm Heart sounds: S1 normal heart sound present and S2 normal heart sound present Coding Level of Care Code Est Pt Level 4 (85466) Diagnoses HTN (hypertension) I10 Hyperlipidemia E78.5 Hypothyroidism E03.9 Breast CA C50.919 Morbid obesity with BMI of 45.0-49.9, adult E66.01; Z68.42 Additional Codes JUAQUIN-7 Assessment Billing - JUAQUIN-7 Assessment Tool: JUAQUIN-7 Assessment 29149 ([id number]) PHQ-9 - 63033 - PHQ-9 Billing: Yes ([id number]) Assessment & Plan Assessment & Plan (1) HTN (hypertension): Comment: dx 2018 Code(s): I10 - Essential (primary) hypertension Category: Medical Plan: Continue current medications (2) Hyperlipidemia: Code(s): E78.5 - Hyperlipidemia, unspecified Category: Medical Plan: Change pravastatin to rosuvastatin 20 mg a day continue low-cholesterol diet check lipid profile in 2 months (3) Hypothyroidism: Code(s): E03.9 - Hypothyroidism, unspecified Category: Medical Plan: Increase levothyroxine to 100 mcg daily check TSH in 2 months. 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 [facility] Code(s): C50.919 - Malignant neoplasm of unspecified site of unspecified female breast Category: Medical Plan: Follow-up with breast surgeon (5) Morbid obesity with BMI of 45.0-49.9, adult: Comment: pt declined GLP 1 agonist 07/2024 Code(s): E66.01 - Morbid (severe) obesity due to excess calories; Z68.42 - Body mass index [BMI] 45.0-49.9, adult Category: Medical Plan: Decrease caloric intake increasing physical activity discussed with the patient Orders: Orders TSH reflex Free T4 2 Months E03.9 - Hypothyroidism, unspecified, E78.5 - Hyperlipidemia, unspecified, I10 - Essential (primary) hypertension Lipid Panel 6 Months C50.919 - Malignant neoplasm of unspecified site of unspecified female breast, E03.9 - Hypothyroidism, unspecified, E66.01 - Morbid (severe) obesity due to excess calories, I10 - Essential (primary) hypertension, Z68.42 - Body mass index [BMI] 45.0-49.9, adult Vitamin D 25-OH Total 6 Months C50.919 - Malignant neoplasm of unspecified site of unspecified female breast, E03.9 - Hypothyroidism, unspecified, E66.01 - Morbid (severe) obesity due to excess calories, I10 - Essential (primary) hypertension, Z68.42 - Body mass index [BMI] 45.0-49.9, adult Lipid Panel 2 Months E03.9 - Hypothyroidism, unspecified, E78.5 - Hyperlipidemia, unspecified, I10 - Essential (primary) hypertension Comprehensive [place]. Panel Fast 6 Months C50.919 - Malignant neoplasm of unspecified site of unspecified female breast, E03.9 - Hypothyroidism, unspecified, E66.01 - Morbid (severe) obesity due to excess calories, I10 - Essential (primary) hypertension, Z68.42 - Body mass index [BMI] 45.0-49.9, adult Complete Blood Count Auto Diff 6 Months C50.919 - Malignant neoplasm of unspecified site of unspecified female breast, E03.9 - Hypothyroidism, unspecified, E66.01 - Morbid (severe) obesity due to excess calories, I10 - Essential (primary) hypertension, Z68.42 - Body mass index [BMI] 45.0-49.9, adult TSH reflex Free T4 6 Months C50.919 - Malignant neoplasm of unspecified site of unspecified female breast, E03.9 - Hypothyroidism, unspecified, E66.01 - Morbid (severe) obesity due to excess calories, I10 - Essential (primary) hypertension, Z68.42 - Body mass index [BMI] 45.0-49.9, adult Medications: New levothyroxine 100 mcg PO DAILY 90 tabs 1RF rosuvastatin (Crestor) 20 mg PO DAILY 90 tabs 2RF Refilled amlodipine 2.5 mg PO DAILY 90 tabs 3RF take with 5 mg amlodipine 5 mg PO DAILY 90 tabs 3RF take with 2.5 mg Discontinued pravastatin Discontinued Reason: Doctor's Order 40 mg PO DAILY 90 tabs 3RF levothyroxine Discontinued Reason: Doctor's Order 88 mcg PO DAILY 90 tabs 3RF
[2025-01-27 13:48] VITALS: BP 126/74; PULSE 76; TEMP 36.7; O2SAT 98; BMI 43.5
== END 2025-01-27 14:25 | disposition home or self-care (01) ==
LOC: HO.HMCC 13:34
PROVIDERS: PCP Internal Medicine; Visit Provider Internal Medicine
DX: I10 Essential (primary) hypertension (principal); C50.912 Malignant neoplasm of unspecified site of left female breast; E66.01 Morbid (severe) obesity due to excess calories; Z68.42 Body mass index [BMI] 45.0-49.9, adult; E78.5 Hyperlipidemia, unspecified; E03.9 Hypothyroidism, unspecified

== ENCOUNTER → 2025-01-27 13:34 | Outpatient (BNVA) | payer OTHER, SELFPAY | PROVIDERS: PCP Internal Medicine; Visit Provider Internal Medicine | DX: I10 Essential (primary) hypertension (principal); E78.5 Hyperlipidemia, unspecified; E03.9 Hypothyroidism, unspecified; E66.01 Morbid (severe) obesity due to excess calories; Z68.42 Body mass index [BMI] 45.0-49.9, adult; Z86.000 Personal history of in-situ neoplasm of breast; Z79.899 Other long term (current) drug therapy | CPT/HCPCS: 96127; 99212 ==

== ENCOUNTER 2025-07-28 10:43 | Outpatient (REF) | payer OTHER, SELFPAY ==
[2025-07-28 13:15] LABS: MANUAL DIFF FLAG NO
[2025-07-28 13:39] LABS: Hematocrit 44.9 % (37.0-47.0); Hemoglobin 14.4 g/dl (12.0-16.0); Imm Gran Abs Auto 0.01 X10*3/uL (0.00-0.03); Imm Gran Pct Auto 0.2 % (0.0-0.4); Lymphocytes Absolute Auto 1.6 X10*3/uL (1.2-4.9); Mean Corpuscular HGB Conc 32.1 g/dl (31.0-35.0); Mean Corpuscular Hemoglobin 31.7 pg (27.0-33.0); Mean Corpuscular Volume 98.9 fL (80.0-98.0); NRBC Abs Auto 0.000 X10*3/uL (0.0-0.012); NRBC Pct Auto 0.0 /100WBC (0.0-0.2); Platelet Count 293 X10*3/uL (160-400); Red Blood Count 4.54 X10*6/uL (4.20-5.50); White Blood Count 5.9 X10*3/uL (4.8-10.8)
[2025-07-28 14:04] LABS: Alanine Aminotransferase 29 U/L (0-31); Albumin Level 4.7 g/dL (3.5-5.0); Alkaline Phosphatase 85 U/L (39-117); Anion Gap 11 (12-20); Aspartate Amino Transferase 25 U/L (5-31); Blood Urea Nitrogen 17 mg/dL (9-16); Calcium 9.1 mg/dL (8.4-10.2); Carbon Dioxide 28 mmol/L (22-29); Chloride 106 mmol/L (96-108); Cholesterol 188 mg/dL (<200); Estimated Glomerular Filt Rate > 60; HDL Cholesterol 67 mg/dL (>40); Potassium 4.2 mmol/L (3.3-5.1); Sodium 141 mmol/L (135-145); Total Protein 7.8 g/dL (6.5-8.0); Triglycerides 93 mg/dL (<150)
== END 2025-07-28 10:44 | disposition home or self-care (01) ==
LOC: HO.HMGCLDS 10:43
PROVIDERS: PCP Internal Medicine; Visit Provider Internal Medicine
DX: I10 Essential (primary) hypertension (principal); E66.01 Morbid (severe) obesity due to excess calories; Z68.42 Body mass index [BMI] 45.0-49.9, adult; E03.9 Hypothyroidism, unspecified; C50.919 Malignant neoplasm of unspecified site of unspecified female breast
CPT/HCPCS: 36415; 80053; 80061; 82306; 84443; 85025

== ENCOUNTER 2025-08-04 11:11 | Outpatient (AMB) | payer OTHER, SELFPAY ==
--- NOTE | 2025-08-04 11:24 | A.OFFPC_ITS ---
Vital Signs 08/04/25 11:27 Height 5 ft 7 in Weight 281 lb BMI 44.0 BP 122/68 Blood Pressure Location Rt brachial Position Sitting Respiration 18 Pulse 66 Pulse Source Pulse Oximeter Temp 98.2 F Temp Source Oral Pulse Oximetry (%) 98 Oxygen Delivery Method Room Air Intake Visit Reasons: PE Intake Note: Pt is here today for PE. Allergies No Known Allergies Allergy (Verified 08/04/25 11:29) Medication List - Last Reconciled 08/04/25 by Sujey Crawford MD amlodipine 2.5 mg PO DAILY amlodipine 5 mg PO DAILY cholecalciferol (vitamin D3) 50 mcg PO DAILY citalopram 40 mg (2 x 20 mg) PO DAILY ibuprofen (Advil) 200 mg PO Q6H PRN levothyroxine 100 mcg PO DAILY multivitamin 1 tab PO DAILY rosuvastatin (Crestor) 20 mg PO DAILY Tobacco use date assessed: 08/04/25 Fall risk assessment: No Falls in past year Last assessed Fall Risk: 08/04/25 Dental Screening Dental Screen Date: 01/27/25 HPI PE HPI Details Pt presents for PE. [facility] Medical History (Updated 08/04/25 @ 12:25 by Sujey Crawford MD) Anxiety Hyperglycemia Normal colonoscopy Hypothyroidism Normal Pap smear Hyperlipidemia Anxiety and depression Hemorrhoids Breast CA HTN (hypertension) Surgical History H/O colonoscopy Family History Father HTN (hypertension) Mother No problems noted. Social History Housing: House Alcohol intake: current Alcohol intake frequency: a few times a month Patient Tobacco Use Status: Never used Tobacco e-Cigarette/Vaping Use: Never Used service: No Current occupational status: employed Cognitive needs: No Hearing needs: No Vision needs: Yes Questionnaire Thrive Questionnaire Date Thrive assessed: 01/27/25 I am a: Patient What is your living situation today?: I have a steady place to live Within the past 12 months, did the food you bought not last and you didn't have the money to get more?: Sometimes True Within the past 12 months, did you worry whether your food would run out before you got money to buy more?: Sometimes True Do you have trouble paying for medicines?: I choose not to answer this question Do you have trouble getting transportation to medical appointments?: I choose not to answer this question Do you have trouble paying your heating and electricity bill?: Yes Do you have trouble taking care of your child, family member or friend?: I choose not to answer this question Do you have trouble with day-to-day activities such as bathing, preparing meals, shopping, managing finances, etc.?: No Are you currently unemployed and looking for a job?: No Are you interested in more education?: No Please select the resources that you would like help with: None Currently or been in a relationship where the following occur: I choose not to answer THRIVE Score: 3 JUAQUIN-7 AMB Questionnaire JUAQUIN-7 Date JUAQUIN - 7 assessed: 01/27/25 Feeling nervous, anxious, or on edge: 1 = Several days Not being able to stop or control worryin = Several days Worrying too much about different things: 1 = Several days Trouble relaxin = Several days Being so restless that it is hard to sit still: 1 = Several days Becoming easily annoyed or irritable: 0 = Not at all Feeling afraid as if something awful might happen: 1 = Several days Total JUAQUIN-7 score (0-4 normal; 5-9 mild; 10-14 moderate; 15-21 severe): 6 Source: Developed by Drs. Jese Patterson, Jahaira Villarreal, Yared Bhakta and colleagues, with an educational galina from [employer]. Review of Systems Const All systems reviewed & are unremarkable except as noted in HPI and below Eyes Reports no additional complaints ENT Reports no additional complaints Card Reports no additional complaints Resp Reports no additional complaints GI Reports no additional complaints Reports no additional complaints Physical exam (Primary Care) Vital Signs: Last Vital Signs Temp 98.2 F 08/04/25 11:27 Pulse 66 08/04/25 11:27 Resp 18 08/04/25 11:27 BP 122/68 08/04/25 11:27 Pulse Ox 98 08/04/25 11:27 Oxygen Delivery Method Room Air 08/04/25 11:27 BMI result Body Mass Index 44.0 Tobacco/Smoking Status: Tobacco use Status Tobacco use date assessed 08/04/25 08/04/25 11:33 Patient Tobacco Use Status Never used Tobacco 08/04/25 11:24 e-Cigarette/Vaping Use Never Used 08/04/25 11:24 Thrive Assessment: Date of Thrive Assessment Date Thrive assessed 01/27/25 08/04/25 11:24 Currently or been in a relationship where the following occur: I choose not to answer Const General: no acute distress HENMT Head: Yes normal to inspection Mouth: Normal oral and palatal mucosa present Throat: Yes posterior oropharynx normal Eyes General: appearance normal, both eyes and all related structures Neck Neck: Yes no lymphadenopathy and Yes supple Resp Effort & Inspection: normal respiratory effort Auscultation: clear to auscultation bilaterally Cardio Rhythm: regular rhythm Heart sounds: S1 normal heart sound present and S2 normal heart sound present GI Inspection: Yes normal to inspection Palpation (GI): Soft to palpation Percussion: Yes normal to percussion Auscultation: normal bowel sounds Coding Level of Care Code Est Pt Prev Care >65y(34363) Diagnoses H/O colonoscopy Z98.890 Morbid obesity with BMI of 45.0-49.9, adult E66.01; Z68.42 Breast CA C50.919 HTN (hypertension) I10 Hyperlipidemia E78.5 Annual physical exam Z00.00 Assessment & Plan Assessment & Plan (1) H/O colonoscopy: Comment: 2018, normal Dr. 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 [facility] Code(s): C50.919 - Malignant neoplasm of unspecified site of unspecified female breast Category: Medical Plan: Follow-up with [facility] Oncology (4) HTN (hypertension): Comment: dx 2018 Code(s): I10 - Essential (primary) hypertension Category: Medical Plan: Continue amlodipine (5) Hyperlipidemia: Code(s): E78.5 - Hyperlipidemia, unspecified Category: Medical Plan: Continue statin (6) Annual physical exam: Code(s): Z00.00 - Encounter for general adult medical examination without abnormal findings Category: Medical Plan: Well-balanced diet regular physical activity weight loss discussed with the patient. She is up-to-date with the mammogram colonoscopy and Pap by weigher packing. Follow-up in 6 months with a fasting labs before Orders: Orders UA w Microscopic 6 Months E55.9 - Vitamin D deficiency, unspecified, I10 - Essential (primary) hypertension, R73.9 - Hyperglycemia, unspecified Comprehensive [place]. Panel Fast 6 Months E55.9 - Vitamin D deficiency, unspecified, I10 - Essential (primary) hypertension, R73.9 - Hyperglycemia, unspecified Hemoglobin A1c 6 Months E55.9 - Vitamin D deficiency, unspecified, I10 - Essential (primary) hypertension, R73.9 - Hyperglycemia, unspecified Complete Blood Count Auto Diff 6 Months E55.9 - Vitamin D deficiency, unspecified, I10 - Essential (primary) hypertension, R73.9 - Hyperglycemia, unspecified Lipid Panel 6 Months E55.9 - Vitamin D deficiency, unspecified, I10 - Essential (primary) hypertension, R73.9 - Hyperglycemia, unspecified TSH reflex Free T4 6 Months E55.9 - Vitamin D deficiency, unspecified, I10 - Essential (primary) hypertension, R73.9 - Hyperglycemia, unspecified Vitamin D 25-OH Total 6 Months E55.9 - Vitamin D deficiency, unspecified, I10 - Essential (primary) hypertension, R73.9 - Hyperglycemia, unspecified
[2025-08-04 11:27] VITALS: BP 122/68; PULSE 66; RESP 18; TEMP 36.8; O2SAT 98; BMI 44.0
== END 2025-08-04 12:18 | disposition home or self-care (01) ==
LOC: HO.HMCC 11:11
PROVIDERS: PCP Internal Medicine; Visit Provider Internal Medicine
DX: Z00.00 Encounter for general adult medical examination without abnormal findings (principal); E66.01 Morbid (severe) obesity due to excess calories; Z68.42 Body mass index [BMI] 45.0-49.9, adult; C50.919 Malignant neoplasm of unspecified site of unspecified female breast; Z98.890 Other specified postprocedural states; I10 Essential (primary) hypertension; E78.5 Hyperlipidemia, unspecified

== ENCOUNTER → 2025-08-04 11:11 | Outpatient (BNVA) | payer OTHER, SELFPAY | PROVIDERS: PCP Internal Medicine; Visit Provider Internal Medicine | DX: Z00.00 Encounter for general adult medical examination without abnormal findings (principal); I10 Essential (primary) hypertension; E66.01 Morbid (severe) obesity due to excess calories; E78.5 Hyperlipidemia, unspecified; Z68.42 Body mass index [BMI] 45.0-49.9, adult; Z98.890 Other specified postprocedural states; Z90.12 Acquired absence of left breast and nipple; Z85.3 Personal history of malignant neoplasm of breast | CPT/HCPCS: 99397 ==